=== PATIENT | female | born 1955 | race Caucasian/White ===

== ENCOUNTER 2017-08-05 04:33 | Observation (INO) | payer OTHER ==
--- NOTE | 2017-08-05 04:41 | EDPHY ---
H & P HPI/ROS: HPI CHIEF COMPLAINT: Chest pressure, epigastric discomfort HISTORY OF PRESENT ILLNESS: This patient very pleasant 62-year-old female she is otherwise healthy she does not take any daily medications, she presents emergency room 445 in the morning with pressure in her epigastric region and chest. She states initially it started in her epigastric region radiating up into her chest now. Progressively got worse over the evening. She states around 6:00 p.m. she was at her daughter's wedding. She drank Coke she is allergic to due to suite she thought the need for suite was upsetting her stomach. She tried to vomit but was unable to do so. She has had nausea. She denies any pleuritic pain or shortness of breath. Denies fever. She states the symptoms have persisted with a discomfort in her chest epigastric region. Does not radiate to her back. She denies any jaw pain neck pain numbness or tingling focal weakness. Denies fever. Denies productive cough. Denies abdominal pain. Her main complaint is pressure in her chest. Past Medical History: No significant past medical history Past Surgical History: Cervical fusion Social History: Denies daily use drugs alcohol tobacco products. She is a ICU nurse practitioner. Family History: Noncontributory ROS REVIEW OF SYSTEMS: A comprehensive 10 point review of systems is otherwise negative aside from elements mentioned in the history of present illness. Exam Constitutional appears well nontoxic, triage nursing summary reviewed, vital signs reviewed, awake/alert. Eyes normal conjunctivae and sclera, EOMI, PERRLA. HENT normal inspection, atraumatic, moist mucus membranes, no epistaxis, neck supple/ no meningismus, no raccoon eyes. Respiratory clear to auscultation bilaterally, normal breath sounds, no respiratory distress, no wheezing. Cardiovascular rate normal, regular rhythm, no murmur, no edema, distal pulses normal. Gastrointestinal soft, non-tender, no rebound, no guarding, normal bowel sounds, no distension, no pulsatile mass. Genitourinary no CVA tenderness. Musculoskeletal no midline vertebral tenderness, full range of motion, no calf swelling, no tenderness of extremities, no meningismus, good pulses, neurovascularly intact. Skin pink, warm, & dry, no rash, skin atraumatic. Neurologic awake, alert and oriented x 3, AAOx3, moves all 4 extremities equally, motor intact, sensory intact, CN II-XII intact, normal cerebellar, normal vision, normal speech. Psychiatric normal mood/affect. Heme/Lymph/Immune no lymphadenopathy. Differential diagnosis includes but is not limited to: ACS, atypical chest pain , pneumothorax, pneumonia, pulmonary embolism, aortic dissection, congestive heart failure, tumor, musculoskeletal pain, esophageal pain, GERD, peptic ulcer disease, pancreatitis Medical Decision Making: Plan for this patient IV establishment, IV fluid bolus , Zofran for nausea, full-dose aspirin, nitroglycerin for discomfort, chest x- ray, EKG, troponin rule out acute coronary syndrome. Check D-dimer. Re-evaluation: EKG interpretation by me on record in [employer] system. Impression time of EKG 4:50 a.m., this is sinus tachycardia rate of 102. There is ST depression noted in lead 2, AVF, V2, V3, V4, V5 V6 concerning for ischemia. 0457AM; updated patient. Updated she has an abnormal EKG. She be given full- dose aspirin and nitroglycerin. Re-evaluate. ED x-ray chest one view: Negative for acute cardiopulmonary disease. 0514AM: Patient received nitroglycerin this did not improve her discomfort. IV morphine ordered. EKG interpretation by me on record in [employer] [facility] [employer] system. Impression this is a repeat EKG after nitroglycerin was given. Time of EKG 5:20 a.m., sinus rhythm rate of 82. Very subtle ST depression noted in V3 V4 V5. Improved from previous EKG. 0553: Patient requesting to use the bathroom. I went over extensively with her and her family about her blood work, EKG and x-ray. She has negative D- dimer. Troponin is 0.029. EKG had ST depression anterior lateral leads improved after nitroglycerin on repeat EKG. Pain is improved with morphine. She is agreeable on admission for chest pain cardiac evaluation and rule out. 0600AM: Patient resting comfortably. She agrees for hospital admission. Cardiac follow-up. She did have an abnormal EKG improved after nitroglycerin. Troponin is negative but 0.029. Updated the hospitalist service. Lovenox 1 milligram/kilogram. Repeat troponin at this time. Admission. Dr. Lamar. Chest pain is improved at this time. Source: Patient Constitutional: Initial Vital Signs Temperature (C) 36.7 C 08/05/17 04:40 Heart Rate 105 H 08/05/17 04:40 Respiratory Rate 16 08/05/17 04:40 Blood Pressure 157/87 H 08/05/17 04:40 O2 Sat (%) 99 08/05/17 04:40 O2 Delivery Mode Room Air Allergies/Adverse Reactions: aspartame [artifical sweetener] Allergy (Verified 08/05/17 08:40) saccharin Allergy (Verified 08/05/17 08:40) sucralose Allergy (Verified 08/05/17 08:40) Home Medications: Medication Instructions Recorded Clobetasol Propionate 1 angel TP DAILY PRN 08/05/17 Fexofenadine HCl [Vivian Allergy] 180 mg PO DAILY PRN 08/05/17 Ibuprofen [Motrin (*)] 400 mg PO DAILY PRN 08/05/17 Metaxalone [Skelaxin 800 mg (*)] 200 - 400 mg PO DAILY PRN 08/05/17 Valacyclovir HCl [Valtrex] 1,000 mg PO TID PRN 08/05/17 Aspirin EC [Aspirin EC 81 mg (*)] 81 mg PO DAILY #30 tab 08/06/17 Atorvastatin Calcium [Lipitor 40 40 mg PO DAILY #30 tab 08/06/17 mg (*)] Nitroglycerin [Nitrostat 0.4 mg 0.4 mg SL Q5M PRN #20 btl 08/06/17 (*)] Medical Decision Making - Data Points Laboratory Results: Laboratory Results 08/05/17 04:54 08/05/17 04:54 Medications Given: Discontinued Medications Acetaminophen (Tylenol) 650 mg PO Q4HRS PRN PRN Reason: Pain, Mild/Fever, Can Take PO Stop: 02/01/18 06:08 Last Admin: 08/06/17 12:14 Dose: 650 mg Aspirin (Aspirin) 324 mg PO EDNOW ONE Stop: 08/05/17 04:48 Last Admin: 08/05/17 04:56 Dose: 324 mg Aspirin (Aspirin) 81 mg PO DAILY MOI Stop: 02/02/18 08:59 Last Admin: 08/06/17 08:04 Dose: 81 mg Aspirin Buffered (Aspirin Ec) 325 mg PO ONCALL ONE Stop: 08/05/17 10:15 Last Admin: 08/05/17 12:36 Dose: Not Given Atorvastatin Calcium (Lipitor) 40 mg PO DAILY MOI Stop: 02/01/18 12:44 Last Admin: 08/06/17 08:04 Dose: 40 mg Diazepam (Valium) 5 mg PO ONCALL ONE Stop: 08/05/17 10:15 Last Admin: 08/05/17 12:36 Dose: Not Given Diphenhydramine HCl (Benadryl) 25 mg PO ONCALL ONE Stop: 08/05/17 10:15 Last Admin: 08/05/17 10:47 Dose: 25 mg Enoxaparin Sodium (Lovenox) 78 mg SC EDNOW ONE Stop: 08/05/17 05:59 Last Admin: 08/05/17 06:07 Dose: Not Given Enoxaparin Sodium (Lovenox) 74 mg SC EDNOW ONE Stop: 08/05/17 06:01 Last Admin: 08/05/17 06:30 Dose: 74 mg Famotidine (Pepcid) 20 mg PO ONCALL ONE Stop: 08/05/17 10:15 Last Admin: 08/05/17 10:47 Dose: 20 mg Sodium Chloride (Ns) 1,000 mls @ 0 mls/hr IV EDNOW ONE; Wide Open PRN Reason: Protocol Stop: 08/05/17 04:48 Last Admin: 08/05/17 04:57 Dose: 1,000 mls Sodium Chloride (Ns) 500 mls @ 1,500 mls/hr IV ONCE ONE Stop: 08/05/17 07:18 Last Admin: 08/05/17 07:26 Dose: 500 mls Potassium Chloride (Potassium Cl 10 Meq (Premix)) 100 mls @ 100 mls/hr IV Q1 MOI Stop: 08/05/17 13:59 Last Admin: 08/05/17 16:35 Dose: 100 mls Morphine Sulfate (Morphine) 2 mg IVP EDNOW ONE Stop: 08/05/17 05:12 Last Admin: 08/05/17 05:21 Dose: 2 mg Morphine Sulfate (Morphine) 2 mg IVP EDNOW ONE Stop: 08/05/17 06:14 Last Admin: 08/05/17 06:19 Dose: 2 mg Nitroglycerin (Nitrostat) 0.4 mg SL Q5M PRN PRN Reason: Chest Pain Last Admin: 08/05/17 09:16 Dose: 0.4 mg Ondansetron HCl (Zofran) 4 mg IVP EDNOW ONE Stop: 08/05/17 05:12 Last Admin: 08/05/17 05:21 Dose: 4 mg Ondansetron HCl (Zofran) 4 mg IVP Q4HRS PRN PRN Reason: Nausea/Vomiting, Can't Take PO Stop: 02/01/18 06:08 Last Admin: 08/05/17 18:28 Dose: 4 mg Potassium Chloride (Klor-Con) 10 - 40 meq PO ONCE ONE PRN Reason: Protocol Stop: 08/05/17 09:00 Last Admin: 08/05/17 09:32 Dose: Not Given Potassium Chloride (Klor-Con) 40 meq PO ONCE ONE Stop: 08/05/17 16:59 Last Admin: 08/05/17 17:26 Dose: 40 meq Departure - Departure Disposition: [facility] Inpatient Acute Clinical Impression: Chest pain Qualifiers: Chest pain type: unspecified Qualified Code(s): R07.9 - Chest pain, unspecified Condition: Good
[2017-08-05] MEDS ORDERED: NS 1,000 ML IV ONE (04:47)
[2017-08-05] MEDS ORDERED: ASPIRIN 81 MG CHEWABLE TAB PO ONE (04:47)
--- NOTE | 2017-08-05 04:52 | CPEKG ---
Heart Rate: 102 RR Interval: 588 P-R Interval: 180 QRSD Interval: 88 QT Interval: 372 QTC Interval: 485 P [place]: 67 QRS [place]: -3 T Wave [place]: 26 EKG Severity - OTHERWISE NORMAL ECG - EKG Impression: SINUS TACHYCARDIA EKG Impression: MINIMAL ST DEPRESSION, ANTEROLATERAL LEADS Electronically Signed By: Raffi Qiu 05-Aug-2017 07:53:27
[2017-08-05] MEDS: NITROGLYCERIN 0.4 MG BTL SL PRN ×2 (04:58→09:16)
[2017-08-05 05:05] LABS: % IMMATURE GRANULYOCYTES 0.4 % (0.0-1.1); ABSOLUTE IMMATURE GRANULOCYTES 0.04 10^3/uL (0.00-0.10); ADD DIFF? NO; ADD MORPH? NO; ADD SCAN? NO; ATYPICAL LYMPHOCYTE FLAG 0 (0-99); FRAGMENT RBC FLAG 0 (0-99); HEMATOCRIT 39.4 % (38.0-47.0); HEMOGLOBIN 13.5 g/dL (12.6-16.3); LEFT SHIFT FLG 0 (0-99); LIPEMIA HEMOLYSIS FLAG 90 (0-99); MEAN CELL HEMOGLOBIN 29.7 pg (27.9-34.1); MEAN CELL HEMOGLOBIN CONCENTR. 34.3 g/dL (32.4-36.7); MEAN CELL VOLUME 86.8 fL (81.5-99.8); MEAN PLATELET VOLUME 9.7 fL (8.7-11.7); PLATELET CLUMPS FLAG 10 (0-99); PLATELET COUNT 272 10^3/uL (150-400); RED BLOOD CELL COUNT 4.54 10^6/uL (4.18-5.33); RED CELL DISTRIBUTION WIDTH 12.8 % (11.5-15.2)
[2017-08-05] MEDS ORDERED: ONDANSETRON 4 MG/2 ML VIAL IVP ONE (05:11)
[2017-08-05 05:14] LABS: INR 0.97 (0.83-1.16); PROTIME(PATIENT) 12.8 SEC (12.0-15.0)
[2017-08-05 05:19] LABS: ALANINE AMINOTRANSFERASE 38 IU/L (9-52); ALBUMIN 4.6 g/dL (3.5-5.0); ALKALINE PHOSPHATASE 75 IU/L (38-126); ANION GAP 14 mEq/L (8-16); ASPARTATE AMINOTRANSFERASE 23 IU/L (14-46); BILIRUBIN,TOTAL 0.6 mg/dL (0.1-1.4); BILIRUBIN-CONJUGATED 0.2 mg/dL (0.0-0.5); BILIRUBIN-UNCONJUGATED 0.4 mg/dL (0.0-1.1); CALCIUM 9.9 mg/dL (8.5-10.4); CARBON DIOXIDE 21 mEq/l (22-31); CHLORIDE 105 mEq/L (97-110); CREATININE 0.8 mg/dL (0.6-1.0); GLOMERULAR FILTRATION RATE > 60; GLUCOSE 110 mg/dL (70-100); MAGNESIUM 1.9 mg/dL (1.6-2.3); POTASSIUM 3.2 mEq/L (3.5-5.2); SODIUM 140 mEq/L (134-144)
--- NOTE | 2017-08-05 05:21 | CPEKG ---
Heart Rate: 82 RR Interval: 732 P-R Interval: 164 QRSD Interval: 90 QT Interval: 412 QTC Interval: 482 P [place]: 62 QRS [place]: 4 T Wave [place]: 13 EKG Severity - NORMAL ECG - EKG Impression: SINUS RHYTHM Electronically Signed By: Raffi Qiu 05-Aug-2017 07:53:27
[2017-08-05 05:31] LABS: CREATINE KINASE-MB FRACTION 1.95 ng/mL (0.00-3.19); TROPONIN I 0.029 ng/mL (0.000-0.034)
[2017-08-05] MEDS ORDERED: ENOXAPARIN 80 MG/0.8 ML SYR SC ONE ×2 (05:58→06:00)
[2017-08-05] MEDS ORDERED: ONDANSETRON 4 MG/2 ML VIAL IVP PRN (06:09)
[2017-08-05] MEDS ORDERED: PROMETHAZINE HCL 25 MG/ML INJ IVP PRN (06:09)
[2017-08-05] MEDS ORDERED: LORazepam 2 MG/ML INJ IVP PRN (06:09)
[2017-08-05] MEDS ORDERED: diphenhydrAMINE 25 MG CAP PO PRN (06:09)
[2017-08-05] MEDS ORDERED: HYDROCODONE/APAP 5/325 TAB PO PRN (06:09)
[2017-08-05] MEDS ORDERED: NS 1,000 ML IV SCH ×2 (06:15→10:15)
[2017-08-05] MEDS ORDERED: NS 500 ML IV ONE (06:59)
[2017-08-05] MEDS ORDERED: PROTOCOL POTASSIUM 1 DOSE MISC PRN (08:32)
[2017-08-05] MEDS ORDERED: PROTOCOL MAGNESIUM 1 DOSE IV PRN (08:32)
[2017-08-05] MEDS ORDERED: POTASSIUM CL 10 MEQ TAB PO ONE (08:59)
[2017-08-05] MEDS ORDERED: METAXALONE 800 MG TAB PO PRN (09:03)
[2017-08-05] MEDS ORDERED: CLOBETASOL 0.05% 25 ML TOPICAL SOLUTION TP PRN (09:03)
[2017-08-05] MEDS ORDERED: NON-FORMULARY NEW DRUG (Fexofenadine Hcl [Allegra Allergy] 180 MG) PO PRN (09:03)
[2017-08-05] MEDS ORDERED: NON-FORMULARY NEW DRUG (Valacyclovir Hcl [Valtrex] 1,000 MG) PO PRN (09:03)
[2017-08-05] MEDS ORDERED: valACYclovir 500 MG TAB PO PRN (09:09)
[2017-08-05] MEDS ORDERED: CETIRIZINE 10 MG TAB PO PRN (09:09)
--- NOTE | 2017-08-05 09:14 | GHP ---
[f rep st] HISTORY AND PHYSICAL DATE OF ADMISSION: 08/05/2017 Patient without listed PCP. SOURCE: Patient provides history, appears reliable. Case discussed with ED provider. CHIEF COMPLAINT: Chest pain. HISTORY OF PRESENT ILLNESS: This is a pleasant 62-year-old female with no significant past medical h istory, who presents to the emergency department today with complaints of approximately 10-12 hours o f substernal chest pain. The patient reports that she was at her daughter's wedding when she began t o develop symptoms. She denies any associated diaphoresis, shortness of breath, or lightheadedness. The patient does report a little bit of nausea. The patient does have a reaction to all artificial sweeteners and typically will develop some GI upset, so she thought this could have been similar, but she states that as her pain did not improve, she recognized this was a little bit different. The pa osorio went home, tried to sleep, but she was not able to get comfortable. She tossed and turned all evening and then subsequently decided to come to the emergency department for evaluation. The patien t reports that she is very healthy and active. Earlier this week, patient states that she jogged 5 m whit 3 times in the week. 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 REVIEW OF SYSTEMS: GENERAL: No fevers or chills. SKIN: The patient reports chronic skin issues related to history of ichthyosis and more acute change s on her lower legs related to a recent spray tanning. Denies any open sores. ENT: No nasal congestion, sore throat. EYES: No acute changes in vision or ocular pain. CV: See HPI. RESPIRATORY: No shortness of breath or cough. GI: Some nausea but no abdominal pain or diarrhea. No melena or hematochezia. : No dysuria or hematuria. MUSCULOSKELETAL: Patient with chronic neck pain related to her history of cervical spine stenosis st atus post fusion. No myalgias. NEUROLOGIC: No headache. No numbness or tingling. PSYCH: Patient denies anxiety or depression but admits to increased stress recently as above. Remaining review of systems negative except as noted above. ALLERGIES: No known drug allergies. Patient with a food allergy to all artificial sweeteners. MEDICATIONS: Patient does not take any prescriptions or [id number]. No supplements. PAST MEDICAL HISTORY: Patient denies. She does have chronic neck pain. PAST SURGICAL HISTORY: Significant for cervical spine fusion, x3, appendectomy, tonsillect gloria and adenoidectomy. FAMILY HISTORY: Negative for coronary artery disease. Positive for ichthyosis. SOCIAL HISTORY: Patient is , lives with her . Denies any tobacco, drug or alcohol use . 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 CODE STATUS: Full. The patient does have an MD POA. PHYSICAL EXAMINATION: VITAL SIGNS: On arrival to the ER: Blood pressure 143/99, heart rate 106, re spiratory rate 18, O2 saturation 99% on room air. Vitals on the floor: Blood pressure 123/84, heart rate 85, respiratory rate 18, O2 saturation 98% on room air. GENERAL: No acute distress. Pleasant adult female is resting quietly in bed. and daughter are at bedside. HEAD: Normocephalic, atraumatic. EYES: Extraocular muscles are grossly intact. No scleral icterus or conjunctival inje ction. Pupils are equal and round. ENT: Mucous membranes appear slightly dry. No nasal discharge. NECK: Supple. CV: Regular rate and rhythm. No murmurs, rubs, or gallops appreciated. RESPIRATO RY: Lungs clear to auscultation bilaterally. No wheezes, rales, or rhonchi. GI. ABDOMEN: Positiv e bowel sounds. Soft, nontender to palpation. No rebound, guarding, or masses appreciated. : No Shaw in place. No suprapubic tenderness to palpation. MUSCULOSKELETAL: Grossly nonfocal. Streng th is grossly normal. Patient moves all extremities. She ambulates independently and sits up withou t assistance. NEUROLOGIC: Grossly nonfocal. No facial drooping. Moves all extremities. PSYCH: P atient awake, alert, and oriented x4. Does appear a little bit anxious but otherwise thought process , content and questions are appropriate. LABORATORY STUDIES: WBC is 9.7, H and H 13.5 and 39.4, MCV 86.8, platelet count 272. No bands. PT is 12.8, INR 0.97, PTT is 24. D-dimer is 0.27. Sodium is 140, potassium is 3.2, chloride 105, CO2 2 1, BUN 13, creatinine is 0.8, glucose 110, calcium 9.9, magnesium 1.9, total bilirubin 0.6, ALT 38, A ST 23, alkaline phosphatase 75. CK is 127, CK-MB is 1.95. Troponin 0.029, repeat decreased to 0.026 . BTNP is 196. Total protein 7.0, albumin 4.6, lipase 85. TSH is 4.20. EKG reviewed myself initial on arrival to the ER, significant for less than [address]-depression in the anterolateral leads, T-wave flattening and aVF, ST depression lead 2. Rate and rhythm sinus tachyca rdia in the 100s. Repeat EKG shows sinus rhythm in the 80s, ST depressions improved, still slightly noted in V3, V4. Q Tc 482. Chest x-ray reviewed myself without any acute findings. Lungs are clear. No cardiomegaly. ASSESSMENT AND PLAN: A pleasant 62-year-old female, who is otherwise healthy, presents with new onse t of chest pain. D-dimer is negative for any concern of pulmonary embolism. Patient without any pre vious history of chest pain prior to today. She has been under a large amount of stress. Her initia l heart score is 3. The patient received a dose of aspirin and nitroglycerin in the emergency depart ment with improvement in EKG changes. Cardiology has been consulted and patient has been made n.p.o. 1. EKG changes. Plan as above. 2. Hypokalemia replacement will be ordered. Glucose mildly elevated nonfasting level. We will cont inue to monitor. 3. Fluid, electrolyte, nutrition: Continue with some IV fluids. Patient does appear to be a little volume down. Her blood pressure did decline slightly after the nitroglycerin. She will be given a bolus on the floor and then followed by replacement rate. Electrolytes will be replacement as noted and the patient will be n.p.o. 4. Prophylaxis: Request the patient receive a therapeutic dosing of Lovenox prior to the 2nd tropon in. She already received aspirin, and nitroglycerin will be available p.r.n. 5. Code status: Full. 6. Disposition: Patient admitted initially to observation on the PCU for close telemetry monitoring . /[id number]/MODL
--- NOTE | 2017-08-05 09:25 | CPEKG ---
Heart Rate: 79 RR Interval: 759 P-R Interval: 184 QRSD Interval: 78 QT Interval: 408 QTC Interval: 468 P [place]: 61 QRS [place]: 2 T Wave [place]: 14 EKG Severity - BORDERLINE ECG - EKG Impression: SINUS RHYTHM EKG Impression: BORDERLINE T WAVE ABNORMALITIES Electronically Signed By: Eliana Oliver 05-Aug-2017 20:02:24
[2017-08-05] MEDS: POTASSIUM Cl (KCl) 100 ML IV SCH ×4 (09:28→16:35)
[2017-08-05] MEDS ORDERED: diphenhydrAMINE 25 MG CAP PO ONE (10:14)
[2017-08-05] MEDS ORDERED: ASPIRIN EC 325 MG TAB PO ONE (10:14)
[2017-08-05] MEDS ORDERED: FAMOTIDINE 20 MG TAB PO ONE (10:14)
[2017-08-05] MEDS ORDERED: DIAZEPAM 5 MG TAB PO ONE (10:14)
--- NOTE | 2017-08-05 10:17 | PDPROPOC ---
Sedation Plan of Care Sedation Plan of Care: vital signs stable, mental status noted ASA Classification: ASA 1 Planned drugs: fentanyl, midazolam Mallampati Score: Class 2 Mallampati Reference Image: Patient passed 3-3-2 rule?: Yes
--- NOTE | 2017-08-05 10:17 | PDHPUP ---
History & Physical Update H&P update statement: This history and physical update is based on an assessment of the patient which was completed after admission or registration (within 24 hours), but prior to the surgery/procedure. H&P update: H&P reviewed & patient examined, no change in patient's condition since H&P completed
--- NOTE | 2017-08-05 10:55 | GCON ---
[f rep st] CONSULTATION CARDIOLOGY CONSULT DATE OF CONSULTATION: 08/05/2017 CHIEF COMPLAINT: Chest pain. HISTORY OF PRESENT ILLNESS: We were asked by Dr. Ferrer to visit with this patient. The patient is a very pleasant 62-year-old female with no known cardiac history. She has no cardiac risk factors. She was attending her daughter's wedding yesterday. In the evening, just before 6 o'clock she dante rashid just felt unwell. She thinks she may have been dehydrated. She was not specifically having chest pain at that time. She asked for a Coke, but was inadvertently given a diet Coke. She is very aller gic to artificial sweeteners. She took about 3 sips of the diet Coke and realized that it was not re gular Coke. She then started to have epigastric discomfort with radiation up into her chest. There is no associated diaphoresis or dyspnea. She thought this was all a reaction to the artificial sweet ener. Over the course of the evening, the discomfort waxed and waned. She was able to attend the receptionist/telephone operator . They went back to where they were staying for the night and she could not sleep. There was no ple uritic component or positional component to the pain. It started to get worse and was taking over a bigger area of her lower chest. She got up and went around and walked outside. Exercise per se did not make the symptoms worse, but in general, they were getting worse. She also noticed that she was having some palpitations and felt a little bit lightheaded. Therefore, she presented to the ER. In the emergency department, her blood pressure was elevated at 157/87 and she was tachycardic to 102 beats per minute. A 12-lead EKG showed diffuse subtle ST depression. She was given nitroglycerin w ith normalization of her EKG and resolution of her chest discomfort. Two troponins have been negativ e thus far. Upon my evaluation, she started to have chest discomfort again, was given another nitroglycerin with resolution of the pain. A post nitroglycerin EKG showed T-wave flattening, but no ST depression or S T elevation. REVIEW OF SYSTEMS: She has been under stress related to the wedding and also an upcoming event later this week, but otherwise a full 10-point review of systems is performed and is negative except that which is outlined in history of present illness. ALLERGIES: Aspartame, saccharin and sucralose. PAST MEDICAL HISTORY/SURGICAL HISTORY: Cervical fusion, x3, appendectomy, HSV and seasonal allergies. She reports a calcium score of zero about 3 years ago. OUTPATIENT MEDICATIONS: Clobetasol propionate, Vivian p.r.n., ibuprofen p.r.n., Skelaxin p.r.n., an d Valtrex p.r.n. SOCIAL HISTORY: The patient is and she is an ICU nurse educator. Her family is at the [facility]. She does not smoke cigarettes or drink significant amounts of alcohol. FAMILY HISTORY: Negative for premature coronary disease or sudden cardiac . PHYSICAL EXAM: VITAL SIGNS: Current blood pressure 94/86, heart rate 81, oxygen saturation 95% on r oom air. She is afebrile. GENERAL: Well-appearing, middle-aged female in no acute distress. HEENT : Sclerae clear and free of jaundice. Mucous membranes are moist. CARDIOVASCULAR: JVP less than 1 0. Regular rate and rhythm without murmur, rub or gallop. LUNGS: Clear to auscultation without whe yun, rhonchi, or rales. ABDOMEN: Soft, nontender, nondistended. No bruits, masses or hepatosplenom egaly. Specifically, there is no epigastric tenderness to palpation. EXTREMITIES: Warm, well perfu sed without cyanosis, clubbing, or edema. 2+ dorsalis pedis pulses bilaterally. NEURO: Alert and o riented x3 without gross focal neurologic deficits. LABORATORY DATA: White count 9.76, hematocrit 39.4, and platelets are 272. Coagulation parameters a re normal. D-dimer is negative. Sodium 140, potassium 3.2, chloride 105, bicarb 21, BUN 13, creatin ine 0.8, glucose 110. LFTs are normal. Lipase is normal. TSH normal. BNP 196. Troponin at 4:54 a .m. this morning is negative. Troponin at 6:00 a.m. is negative. CK and CK-MB are also normal. Echocardiogram reviewed by me done at the bedside shows normal LV size and systolic function. There may be subtle basal to mid anteroseptal hypokinesis. Mild mitral regurgitation and trace tricuspid r egurgitation with normal estimated pulmonary artery pressure. Serial EKGs reviewed by me and as outlined in history of present illness. Chest x-ray reviewed by me shows no acute cardiopulmonary process. ASSESSMENT/PLAN: A 62-year-old female with symptoms concerning for unstable angina as evidenced by w axing and waning chest discomfort that is nitroglycerin responsive and dynamic EKG changes. It is re assuring that her troponins are negative, but her BNP is slightly elevated. Her echo may have very s ubtle wall motion abnormality. Given the constellation of these findings with ongoing chest discomfort at rest, I recommended defini tive assessment with coronary angiogram. Since we are entertaining the diagnosis of unstable angina, stress testing would not be appropriate risk stratification at this time. Differential diagnosis do es include gastrointestinal pathology or musculoskeletal. However, EKG changes, as mentioned, are dy namic and therefore concerning. 1. Chest pain: As detailed above. The risks, benefits and alternatives of coronary angiogram were discussed the patient and the family. She agrees to proceed. 2. Hypokalemia: Unclear etiology. She has not had diarrhea. We will replete this intravenously. Thank you for allowing us to participate in this patient's care. We will follow with you. /[id number]/MODL
[2017-08-05] MEDS ORDERED: VERAPAMIL 5 MG/2 ML VIAL ONE (10:58)
[2017-08-05] MEDS ORDERED: MIDAZOLAM 2 MG/2 ML VIAL ONE ×2 (10:58)
[2017-08-05] MEDS ORDERED: LIDOCAINE 1% 300 MG/30 ML SDV ONE (10:58)
[2017-08-05] MEDS ORDERED: HEPARIN 10,000 UNIT/10 ML MDV ONE (10:58)
[2017-08-05] MEDS ORDERED: fentaNYL 100 MCG/2 ML INJ ONE (10:58)
[2017-08-05] MEDS ORDERED: IOPAMIDOL (ISOVUE-370) 150 ML BTL IV ONE (10:58)
--- NOTE | 2017-08-05 11:35 | ECHO ---
[email or web address] [address] [address] Main: [phone] Fax: Transthoracic Echocardiogram Name: SUSU MEDINA MR#: [id number] Study Date: 08/05/2017 Study Time: 09:29 AM Date of : 1955 Age: 62 year(s) Height: 170.2 cm (67 in.) Weight: 71.21 kg (157 lb.) BSA: 1.82 m2 Gender: Female Examination: Echo Indication: Chest Pain Image Quality: Contrast: Requested by: Paulette Bone BP: / Heart Rate: Rhythm: Indication: Chest Pain Procedure Staff Ordering Physician: ERIKA Four Slide Machine Operator: Lloyd Cisneros Reading Physician: Paulette Bone Conclusions: Normal size left ventricle. Normal global systolic LV function (EF 62 %). The mid anteroseptal segment is hypokinetic. Normal size right ventricle. Normal RV function. Trivial to mild mitral regurgitation. There is no previous echocardiogram for comparison. Measurements: Chambers Valvular Assessment AV/MV Valvular Assessment TV/PV Normal Normal Normal Name Value Range Name Value Range Name Value Range Ao Jazzy (MM): 2.5 cm (2.2 cm-3.7 AV Vmax: 1.62 m/s (1 m/s-1.7 TR Vmax: 2.47 mm/s ( - ) cm) m/s) TR PGmax: 24 mmHg ( - ) IVSd (2D): 0.8 cm (0.6 cm-1.1 AV maxP mmHg ( - ) syst. PAP: 29 mmHg ( - ) cm) LVOT Vmax: 1.11 m/s (0.7 m/s-1.1 PV Vmax: 1.10 cm/s (0.6 m/s-0.9 LVDd (2D): 4.2 cm (3.9 cm-5.3 m/s) m/s) cm) MV E Vmax: 0.65 cm/s ( - ) PV PGmax: 5 mmHg ( - ) LVDs (2D): 2.8 cm (2.1 cm-4 MV A Vmax: 0.74 cm/s ( - ) cm) MV E/A: 0.88 ( - ) LVPWd (2D): 1.0 cm ( - ) LVEF (2D): 62 (>=54 %) Continued Measurements: Chambers Valvular Assessment AV/MV Valvular Assessment TV/PV Name Value Name Value Name Value LA Area: 14.5 cm2 MV E/E' Septal: 7.50 CVP (est.): 5 LA Volume: 36 ml MV E/E' Lateral: 6.90 Patient: SUSU MEDINA Study Date: 08/05/2017 Page 1 of 2 09:29 AM LA Volume Index: 19.8 ml/m2 Findings: Left Ventricle: Normal size left ventricle. Normal global systolic LV function (EF 62 %). The mid anteroseptal segment is hypokinetic. All remaining scored wall segments are normal. Right Ventricle: Normal size right ventricle. Normal RV function. Left Atrium: The left atrium is normal in size. Right Atrium: The right atrium is normal in size. Mitral Valve: The mitral valve is normal in appearance. Trivial to mild mitral regurgitation. Aortic Valve: The aortic valve is normal in appearance and function. The aortic valve is tri-leaflet and functions normally. Tricuspid Valve: The tricuspid valve is normal in appearance and function. Pulmonic Valve: The pulmonic valve is normal in appearance and function. Great Vessels: The aorta is normal. Pericardium: No pericardial effusion. (No Signature Object) Wall Motion Scores -1 - Not Scored, 0 - Unknown, 1 - Normal or hyperkinesia, 1.5 - Mild Hypokinetic, 2 - Hypokinesia, 2.5 - Severe Hypokinetic, 3 - Akinesia, 4 - Dyskinesia, 5 - Aneurysm Patient: SUSU MEDINA Study Date: 08/05/2017 Page 2 of 2 09:29 AM [id number]
[2017-08-05] MEDS ORDERED: NITROGLYCERIN 1,500 MCG/15 ML VIAL MISC ONE (11:57)
[2017-08-05] MEDS ORDERED: ATROPINE SULFATE 1 MG/10 ML SYR IVP PRN (12:42)
--- NOTE | 2017-08-05 12:50 | PDDXCAT ---
Diagnostic Cath Note - . Date: 08/05/17 Loan Examiner: Lizandro Indication: other (unstable angina) - Procedure Access: right wrist Procedure: left heart catheterization, coronary angiography, left ventriculogram - Materials Left Heart Cath size: 5F Left Heart Cath materials: JL3.5, JR4.0, pigtail Right Heart Cath size: 5F - Findings-Left Heart Catheterization LM: normal LAD: normal with one principal diagonal. There is at least 50% ostial disease of this diagonal branch with NIMA III flow in the vessel. The LAD proper is normal LCX: left dominant. 2 large OM branches. No significant CAD RCA: nondominant. No significant disease EDP: 20 LVEF: 70%. Normal wall motion Wall motion: normal Complications: none Estimated blood loss: <50ml Closure method: TR Band Assessment: Moderate ostial diagonal disease with NIMA III flow in the vessel. No other significant CAD. This may be the cause her CP, but her troponins have been negative. Due to the ostial nature of this disease and concern for involving the LAD, decision was made for medical managment. COnsideration for further risk stratification with nuclear stress test. STart ASA, statin. Check lipids. Discussed in detail with Dr. Akhtar and patient and patient's family Plan: as above Patient Problems: Problems Problem Status Onset Chest pain Acute
--- NOTE | 2017-08-05 16:11 | HOSPPROG ---
Hospitalist Progress Note Assessment/Plan: Introduced myself to patient and family, answered questions regarding possible causes of chest pain, laid out plan for EKG/trop/SLN if chest pain returns, will monitor on tele for 24hrs and monitor for recurrent of symptoms given that it is unclear whether they are related to ostial diag stenosis. Objective: Vital Signs Temp Pulse Resp BP Pulse Ox 37.0 C 78 18 119/71 96 08/05/17 15:30 08/05/17 15:30 08/05/17 15:30 08/05/17 15:30 08/05/17 15:30 08/04/17 08/05/17 08/06/17 05:59 05:59 05:59 Intake Total 1960 Balance 1960 PT 12.8 SEC (12.0-15.0) 08/05/17 04:54 INR 0.97 (0.83-1.16) 08/05/17 04:54 ICD10 Worksheet Patient Problems: Problems Problem Status Onset Chest pain Acute
[2017-08-05] MEDS ORDERED: POTASSIUM CL 20 MEQ TAB PO ONE (16:58)
[2017-08-05] MEDS: ATORVASTATIN CALCIUM 40 MG TAB PO SCH (17:26)
[2017-08-06] MEDS: ACETAMINOPHEN 325 MG TAB PO PRN ×3 (00:53→12:14)
[2017-08-06 04:43] LABS: % IMMATURE GRANULYOCYTES 0.3 % (0.0-1.1); ABSOLUTE IMMATURE GRANULOCYTES 0.02 10^3/uL (0.00-0.10); ADD DIFF? NO; ADD MORPH? NO; ADD SCAN? NO; ATYPICAL LYMPHOCYTE FLAG 20 (0-99); FRAGMENT RBC FLAG 0 (0-99); HEMATOCRIT 34.7 % (38.0-47.0); HEMOGLOBIN 11.6 g/dL (12.6-16.3); LEFT SHIFT FLG 0 (0-99); LIPEMIA HEMOLYSIS FLAG 80 (0-99); MEAN CELL HEMOGLOBIN 29.8 pg (27.9-34.1); MEAN CELL HEMOGLOBIN CONCENTR. 33.4 g/dL (32.4-36.7); MEAN CELL VOLUME 89.2 fL (81.5-99.8); MEAN PLATELET VOLUME 9.9 fL (8.7-11.7); PLATELET CLUMPS FLAG 10 (0-99); PLATELET COUNT 229 10^3/uL (150-400); RED BLOOD CELL COUNT 3.89 10^6/uL (4.18-5.33)
[2017-08-06 05:03] LABS: ANION GAP 11 mEq/L (8-16); CALCIUM 9.1 mg/dL (8.5-10.4); CARBON DIOXIDE 22 mEq/l (22-31); CHLORIDE 106 mEq/L (97-110); CREATININE 0.7 mg/dL (0.6-1.0); GLOMERULAR FILTRATION RATE > 60; GLUCOSE 86 mg/dL (70-100); POTASSIUM 3.9 mEq/L (3.5-5.2); SODIUM 139 mEq/L (134-144)
[2017-08-06 05:11] LABS: TROPONIN I 0.064 ng/mL (0.000-0.034)
[2017-08-06] MEDS: ATORVASTATIN CALCIUM 40 MG TAB PO SCH (08:04)
[2017-08-06 08:05] LABS: CHOLESTEROL 153 mg/dL (140-220); HIGH DENSITY LIPOPROTEIN 45 mg/dL (40-85); LDL/HDL RATIO 1.98 RATIO (1.00-3.22); LOW DENSITY LIPOPROTEIN 89 mg/dL (80-100); NON-HIGH DENSITY LIPOPROTEIN 108 mg/dL (90-129); TRIGLYCERIDE 99 mg/dL (35-135); VERY LOW DENSITY LIPOPROTEINS 19 mg/dL (8-25)
[2017-08-06] MEDS ORDERED: ASPIRIN 81 MG CHEWABLE TAB PO SCH (09:00)
--- NOTE | 2017-08-06 09:39 | PDCARPN ---
Cardiology Progress Note Assessment/Plan: Assessment/plan: 62-year-old female with no known cardiovascular history. She presented early on the morning of August 05 with symptoms concerning for unstable angina and dynamic EKG changes. Her 1st troponins were negative. However, given her clinical picture she was taken to the cardiac cath lab radiology technologist yesterday. She was found to have moderate ostial diagonal disease. It is unclear if this was contributing to her clinical symptoms. Given the NIMA 3 flow in the vessel as well as its proximity to her normal LAD, it was elected to not intervene on this. Ejection fraction preserved. 1. Chest pain and coronary disease: It is possible that her symptoms did were present angina, especially with her troponin this morning being minimally elevated. We will repeat a stat troponin now. She is on aspirin and now atorvastatin. She will also be given sublingual nitroglycerin as an outpatient. I am reluctant to start a beta-shyanne given her already low blood pressure. In 2 weeks she should have an exercise nuclear stress test for further risk stratification as well as follow-up with me after that. If her 2nd troponin is flat or decreased she may be discharged home. She understands to call immediately with any recurrent or new symptoms. 08/06/17 09:42 Subjective: Yesterday evening after a light meal, Katie had 30 minutes of intractable nausea and vomiting. After this she did sleep well and did not have any recurrent epigastric discomfort, dyspnea, diaphoresis. She has ambulated in the halls this morning with no symptoms. She denies any pain at the site of her right radial arteriotomy site. Reviewed/Discussed With: family, multidisciplinary team Time Spent With Patient: 20 minutes Objective: Vital Signs (8 Hrs) Temp Pulse Resp BP Pulse Ox 08/06/17 08:28 36.9 C 75 14 113/64 95 08/06/17 04:00 36.6 C 81 16 115/68 93 Intake/Output (24 Hrs) 08/05/17 08/06/17 08/07/17 05:59 05:59 05:59 Intake Total 3385 Output Total 350 Balance 3035 Intake: Oral (ml) 60 IV Intake (ml) 900 IV Infused (ml) 2425 Ns 1,000 ml @ 75 mls/hr 1000 IV CONT MOI Rx#: [id number] POTASSIUM Cl (KCl) 100 ml 425 @ 100 mls/hr IV Q1 MOI Rx#:[id number] Output: Emesis (ml) 350 Other: Weight 71.6 kg Number of Voids 1 Toilet 1 No acute distress. JVP less than 10. Regular rate and rhythm without murmur or gallop Lungs clear auscultation without wheezes rhonchi or rales Abdomen soft nontender. Extremities warm and well perfused without cyanosis clubbing or edema. Right radial arteriotomy site is clean dry and intact. Fingers are warm. Normal capillary refill in the right fingers. No paresthesia. Result Diagrams: 08/06/17 04:01 08/06/17 04:01 Cardiac Labs: Cardiac Lab Results (72 Hrs) 08/06/17 08/05/17 04:01 06:00 Troponin I 0.064 H 0.026 Telemetry: Normal sinus rhythm. Rare PVCs. ICD10 Worksheet Patient Problems: Problems Problem Status Onset Chest pain Acute
--- NOTE | 2017-08-06 10:47 | CPEKG ---
Heart Rate: 74 RR Interval: 811 P-R Interval: 152 QRSD Interval: 80 QT Interval: 408 QTC Interval: 453 P [place]: 69 QRS [place]: 6 T Wave [place]: 30 EKG Severity - BORDERLINE ECG - EKG Impression: SINUS RHYTHM Electronically Signed By: Alberto Cabezas 06-Aug-2017 11:24:13
[2017-08-06 12:21] VITALS: BP 117/67; PULSE 82; RESP 15; TEMP 98; O2SAT 97
--- NOTE | 2017-08-06 17:20 | PDDCSUM ---
Discharge Summary Discharge Summary: DISCHARGE SUMMARY FOLLOW-UP ITEMS: Outpatient nuclear stress test in 2 weeks DATE OF ADMISSION: 08/05/2017 DATE OF DISCHARGE: 08/06/2017 DISCHARGE DIAGNOSES: 1. Acute chest pain 2. Coronary artery disease CONSULTATIONS: Cardiology PROCEDURES / IMAGING: Cardiac catheterization demonstrating 50-60% stenosis in the ostial diagonal with normal ejection fraction and NIMA flow 3 in the vessel CHIEF COMPLAINT: Acute chest pain SUBJECTIVE: Patient is feeling well at time of discharge PHYSICAL EXAM ON DISCHARGE: Systolic blood pressure is 110, heart rate 70, afebrile overnight, satting well on room air, lungs are clear to auscultation bilaterally, heart rhythm is regular with no murmurs rubs or gallops appreciated, no lower extremity edema LABS ON DISCHARGE: Troponin 0.055, LDL 89, potassium 3.9, white blood cell count 6700, D-dimer negative HOSPITAL COURSE BY PROBLEM: The patient presented with acute chest pain and was ruled out for acute coronary syndrome with negative troponins, evaluate for obstructive coronary disease with cardiac catheterization given her risk presentation. Her cardiac catheterization did demonstrate moderate ostial diagonal disease with NIMA 3 flow in the vessel, with proximity to her normal LAD, and the decision was made not to intervene on this lesion. Her ejection fraction was preserved, and she did not have other significant disease. It was unclear as to whether this lesion was the source of her presenting symptoms. She did not have positive troponins on presentation and she had a marginally elevated troponin after she experienced some subsequent GI symptoms, with the troponin level down trending thereafter. It is unclear whether this minimal cardiac enzyme elevation is secondary to coronary artery occlusion. Consequently, she will undergo nuclear medicine stress testing at the direction of Dr. Paulette Bone. She has been initiated on aspirin and statin for secondary prevention. Her heart rate and blood pressure are currently well controlled and she does not require further intervention for these. Patient was offered medications for other GI causes of her symptoms, and she declined. She was provided with sublingual nitroglycerin in case she does experience recurrence of symptoms. DISCHARGE MEDICATIONS: Please see official discharge medication reconciliation sheet in chart , aspirin 81 mg, atorvastatin 40, sublingual nitroglycerin. DISCHARGE INSTRUCTIONS: Please follow up with Dr. Paulette Bone and have a stress test performed 2 weeks.
== END 2017-08-06 14:15 | disposition home or self-care (01) ==
LOC: INTOOBSV 05:59 → F2W 06:46
PROVIDERS: ADMIT Family Medicine; ATTEND Family Medicine
PROC: B2111ZZ Fluoroscopy of Multiple Coronary Arteries using Low Osmolar Contrast (ICD-10-PCS; principal; 2017-08-05 13:12)
PROC: B2151ZZ Fluoroscopy of Left Heart using Low Osmolar Contrast (ICD-10-PCS; principal; 2017-08-05 13:12)
PROC: 4A023N7 Measurement of Cardiac Sampling and Pressure, Left Heart, Percutaneous Approach (ICD-10-PCS; principal; 2017-08-05 13:12)
DX: R07.89 Other chest pain (principal); I25.110 Atherosclerotic heart disease of native coronary artery with unstable angina pectoris; E87.6 Hypokalemia
CPT/HCPCS: 71010; 93005; 93306; 93458; G0378; J1644; J1650; J2250; J2405; J3010; Q9967